=== PATIENT | male | born 1965 | race Caucasian/White ===

== ENCOUNTER 2019-04-16 03:26 | Inpatient (IN) | payer MEDICAID ==
[~2019-04-16] VITALS: Ht 182.9 cm; Wt 106.1 kg
[2019-04-16] MEDS ORDERED: VANCOMYCIN IV 200 ML ONE ×2 (03:51→05:40)
[2019-04-16] MEDS ORDERED: VANCOMYCIN IV 1,000 MG in IV DEXTROSE 5% 250 ML IV ONE (04:00)
[2019-04-16] MEDS ORDERED: SULFAMETH/TRIMETH 800/160 MG TABLET PO ONE (04:15)
[2019-04-16 05:04] LABS: BASOPHILS % (AUTO) 0.4 % (0.0-2.0); EOSINOPHILS # (AUTO) 0.2 K/uL (0.0-0.7); EOSINOPHILS % (AUTO) 2.5 % (0.0-7.0); HEMATOCRIT 41.2 % (36.7-47.1); LYMPHOCYTES # (AUTO) 2.3 K/uL (20.0-40.0); LYMPHOCYTES % (AUTO) 27.1 % (20.5-51.5); MEAN CORPUSCULAR HEMOGLOBIN 28.2 uug (23.8-33.4); MEAN CORPUSCULAR HGB CONC 34 g/dL (32.5-36.3); MEAN CORPUSCULAR VOLUME 83.1 fL (73.0-96.2); MONOCYTES # (AUTO) 0.7 K/uL (2.0-10.0); MONOCYTES % (AUTO) 7.8 % (0.0-11.0); NEUTROPHILS # (AUTO) 5.3 K/uL (1.8-8.9); NEUTROPHILS % (AUTO) 62.2 % (38.5-71.5); PLATELET COUNT (AUTO) 268 K/uL (152-348); RED BLOOD CELL COUNT(AUTO) 4.95 MIL/uL (4.06-5.63); WHITE BLOOD COUNT (AUTO) 8.6 K/uL (3.6-10.2)
[2019-04-16 05:19] LABS: BILIRUBIN,DIRECT 0.1 mg/dL (0.0-0.2); BILIRUBIN,TOTAL 0.3 mg/dL (0.2-1.0); CREATININE 0.7 mg/dL (0.6-1.3); TOTAL PROTEIN, SERUM 5.4 g/dL (6.4-8.2)
[2019-04-16 05:20] LABS: POTASSIUM 2.8 mmol/L (3.5-5.1)
[2019-04-16] MEDS ORDERED: MORPHINE SULFATE 4 MG/1 ML DISP.SYRIN ONE (05:28)
[2019-04-16] MEDS ORDERED: POTASSIUM CHLORIDE 20 MEQ TAB.PRT.SR PO ONE (05:30)
[2019-04-16] MEDS ORDERED: MORPHINE SULFATE 4 MG/1 ML DISP.SYRIN IV ONE (05:30)
[2019-04-16] MEDS ORDERED: ONDANSETRON 4 MG/2 ML VIAL IV ONE (05:30)
[2019-04-16] MEDS ORDERED: ONDANSETRON 4 MG/2 ML VIAL ONE (05:39)
[2019-04-16] MEDS ORDERED: POTASSIUM CHLORIDE 20 MEQ TAB.PRT.SR ONE (05:39)
[2019-04-16] MEDS ORDERED: VANCOMYCIN IV 500 MG in IV DEXTROSE 5% 100 ML IV ONE (05:45)
[2019-04-16] MEDS ORDERED: MAGNESIUM HYDROXIDE 30 ML LIQUID UDC PO PRN (06:45)
[2019-04-16] MEDS ORDERED: POTASSIUM CHLORIDE 20 MEQ in IV 1/2NS 1000 ML 1,000 ML IV PRN (06:45)
[2019-04-16] MEDS ORDERED: ACETAMINOPHEN 325 MG TABLET PO PRN (06:45)
[2019-04-16] MEDS ORDERED: ONDANSETRON 4 MG/2 ML VIAL IV PRN (06:45)
[2019-04-16 06:46] VITALS: BP 138/63
[2019-04-16] MEDS: PANTOPRAZOLE SODIUM 40 MG TABLET.DR PO SCH (09:18)
[2019-04-16] MEDS: ENOXAPARIN SODIUM 40 MG/0.4 ML DISP.SYRIN SQ SCH (09:19)
[2019-04-16 11:36] VITALS: BP 131/69
[2019-04-16] MEDS: VANCOMYCIN IV 1,500 MG in IV DEXTROSE 5% 500 ML IV SCH ×2 (13:30→21:47)
[2019-04-16] MEDS: MAGNESIUM SULFATE/D5W 100 ML IV SCH ×4 (13:30→18:04)
[2019-04-16] MEDS: HYDROCODONE/APAP 5-325MG TABLET PO PRN ×2 (13:48→20:35)
[2019-04-16 15:49] VITALS: BP 106/46
[2019-04-16] MEDS: PIPERACILLIN SODIUM/TAZOBACTAM 3.375 G in IV DEXTROSE 5% 50 ML IV SCH ×2 (16:28→21:47)
[2019-04-16 20:00] VITALS: BP 113/61
[2019-04-16 20:24] LABS: CREATININE 1.2 mg/dL (0.6-1.3); MAGNESIUM 2.5 mg/dL (1.8-2.4)
[2019-04-16] MEDS: DOCUSATE SODIUM 100 MG CAPSULE PO SCH (20:35)
[2019-04-16] MEDS ORDERED: DOCUSATE SODIUM 250 MG CAPSULE PO SCH (21:00)
[2019-04-16] MEDS: TEMAZEPAM 15 MG CAPSULE PO PRN (22:12)
[2019-04-17 04:56] VITALS: BP 120/59
[2019-04-17] MEDS: PIPERACILLIN SODIUM/TAZOBACTAM 3.375 G in IV DEXTROSE 5% 50 ML IV SCH ×3 (05:02→21:41)
[2019-04-17] MEDS: VANCOMYCIN IV 1,500 MG in IV DEXTROSE 5% 500 ML IV SCH ×3 (05:58→23:02)
[2019-04-17] MEDS: PANTOPRAZOLE SODIUM 40 MG TABLET.DR PO SCH (06:18)
[2019-04-17 07:06] LABS: CREATININE 1.2 mg/dL (0.6-1.3); MAGNESIUM 2.1 mg/dL (1.8-2.4); POTASSIUM 3.7 mmol/L (3.5-5.1)
[2019-04-17 08:47] LABS: BASOPHILS % (AUTO) 0.7 % (0.0-2.0); EOSINOPHILS # (AUTO) 0.3 K/uL (0.0-0.7); EOSINOPHILS % (AUTO) 5.1 % (0.0-7.0); HEMOGLOBIN 12.9 g/dL (12.5-16.3); LYMPHOCYTES # (AUTO) 1.8 K/uL (20.0-40.0); LYMPHOCYTES % (AUTO) 29.6 % (20.5-51.5); MEAN CORPUSCULAR HEMOGLOBIN 28.2 uug (23.8-33.4); MEAN CORPUSCULAR HGB CONC 34 g/dL (32.5-36.3); MONOCYTES # (AUTO) 0.5 K/uL (2.0-10.0); MONOCYTES % (AUTO) 7.9 % (0.0-11.0); NEUTROPHILS # (AUTO) 3.5 K/uL (1.8-8.9); NEUTROPHILS % (AUTO) 56.7 % (38.5-71.5); PLATELET COUNT (AUTO) 235 K/uL (152-348); RED BLOOD CELL COUNT(AUTO) 4.57 MIL/uL (4.06-5.63); WHITE BLOOD COUNT (AUTO) 6.2 K/uL (3.6-10.2)
[2019-04-17] MEDS: ENOXAPARIN SODIUM 40 MG/0.4 ML DISP.SYRIN SQ SCH (08:52)
[2019-04-17 11:33] VITALS: BP 135/57
[2019-04-17] MEDS: HYDROCODONE/APAP 5-325MG TABLET PO PRN ×2 (11:48→20:21)
[2019-04-17 16:00] VITALS: BP 131/58
[2019-04-17 20:17] VITALS: BP 148/68
[2019-04-17] MEDS: CULTURELLE CAPSULE PO SCH (20:21)
[2019-04-17] MEDS: DOCUSATE SODIUM 100 MG CAPSULE PO SCH (20:21)
[2019-04-17] MEDS: TEMAZEPAM 15 MG CAPSULE PO PRN (21:41)
[2019-04-18 04:58] VITALS: BP 133/69
[2019-04-18] MEDS: HYDROCODONE/APAP 5-325MG TABLET PO PRN ×3 (05:14→20:37)
[2019-04-18] MEDS: PIPERACILLIN SODIUM/TAZOBACTAM 3.375 G in IV DEXTROSE 5% 50 ML IV SCH ×3 (06:11→21:06)
[2019-04-18 06:17] LABS: BASOPHILS # (AUTO) 0.1 K/uL (0.0-8.0); BASOPHILS % (AUTO) 1.1 % (0.0-2.0); EOSINOPHILS # (AUTO) 0.4 K/uL (0.0-0.7); EOSINOPHILS % (AUTO) 6.5 % (0.0-7.0); HEMATOCRIT 38.8 % (36.7-47.1); HEMOGLOBIN 13.6 g/dL (12.5-16.3); LYMPHOCYTES # (AUTO) 2.1 K/uL (20.0-40.0); LYMPHOCYTES % (AUTO) 31.1 % (20.5-51.5); MEAN CORPUSCULAR HEMOGLOBIN 29.3 uug (23.8-33.4); MEAN CORPUSCULAR HGB CONC 35 g/dL (32.5-36.3); MEAN CORPUSCULAR VOLUME 83.7 fL (73.0-96.2); MONOCYTES # (AUTO) 0.5 K/uL (2.0-10.0); MONOCYTES % (AUTO) 6.8 % (0.0-11.0); NEUTROPHILS # (AUTO) 3.6 K/uL (1.8-8.9); NEUTROPHILS % (AUTO) 54.5 % (38.5-71.5); PLATELET COUNT (AUTO) 234 K/uL (152-348); RED BLOOD CELL COUNT(AUTO) 4.63 MIL/uL (4.06-5.63); WHITE BLOOD COUNT (AUTO) 6.7 K/uL (3.6-10.2)
[2019-04-18] MEDS: PANTOPRAZOLE SODIUM 40 MG TABLET.DR PO SCH (07:12)
[2019-04-18] MEDS: VANCOMYCIN IV 1,500 MG in IV DEXTROSE 5% 500 ML IV SCH ×2 (07:12→23:15)
[2019-04-18 07:21] LABS: CREATININE 1.1 mg/dL (0.6-1.3); POTASSIUM 4.5 mmol/L (3.5-5.1)
[2019-04-18] MEDS: ENOXAPARIN SODIUM 40 MG/0.4 ML DISP.SYRIN SQ SCH (08:42)
[2019-04-18] MEDS: CULTURELLE CAPSULE PO SCH ×2 (08:43→20:34)
[2019-04-18 11:53] VITALS: BP 128/68
[2019-04-18 15:34] VITALS: BP 145/76
[2019-04-18 20:19] VITALS: BP 148/66
[2019-04-18] MEDS: DOCUSATE SODIUM 100 MG CAPSULE PO SCH (20:34)
[2019-04-18] MEDS: TEMAZEPAM 15 MG CAPSULE PO PRN (23:32)
[2019-04-19] MEDS: HYDROCODONE/APAP 5-325MG TABLET PO PRN ×3 (01:10→21:17)
[2019-04-19 04:58] VITALS: BP 145/68
[2019-04-19] MEDS: PIPERACILLIN SODIUM/TAZOBACTAM 3.375 G in IV DEXTROSE 5% 50 ML IV SCH ×3 (05:38→22:52)
[2019-04-19] MEDS: PANTOPRAZOLE SODIUM 40 MG TABLET.DR PO SCH (06:13)
[2019-04-19] MEDS: CULTURELLE CAPSULE PO SCH ×2 (09:23→21:02)
[2019-04-19] MEDS: ENOXAPARIN SODIUM 40 MG/0.4 ML DISP.SYRIN SQ SCH (09:27)
[2019-04-19] MEDS: VANCOMYCIN IV 1,500 MG in IV DEXTROSE 5% 500 ML IV SCH ×2 (11:08→21:02)
[2019-04-19 11:30] VITALS: BP 155/61
[2019-04-19 14:48] VITALS: BP 106/56
[2019-04-19 20:43] VITALS: BP 127/52
[2019-04-19] MEDS: DOCUSATE SODIUM 100 MG CAPSULE PO SCH (21:02)
[2019-04-19] MEDS: TEMAZEPAM 15 MG CAPSULE PO PRN (21:16)
[2019-04-20 05:11] VITALS: BP 138/58
[2019-04-20] MEDS: PIPERACILLIN SODIUM/TAZOBACTAM 3.375 G in IV DEXTROSE 5% 50 ML IV SCH ×2 (05:23→15:15)
[2019-04-20] MEDS: PANTOPRAZOLE SODIUM 40 MG TABLET.DR PO SCH (06:16)
[2019-04-20] MEDS: VANCOMYCIN IV 1,500 MG in IV DEXTROSE 5% 500 ML IV SCH (08:00)
[2019-04-20] MEDS ORDERED: THERAHONEY GEL 1.5 OZ TUBE TOP SCH (09:00)
[2019-04-20] MEDS: CULTURELLE CAPSULE PO SCH (10:09)
[2019-04-20] MEDS: HYDROCODONE/APAP 5-325MG TABLET PO PRN (10:09)
[2019-04-20] MEDS: ENOXAPARIN SODIUM 40 MG/0.4 ML DISP.SYRIN SQ SCH (10:13)
[2019-04-20 11:34] VITALS: BP 118/60
[2019-04-20] MEDS ORDERED: VANCOMYCIN IV 1,500 MG in IV DEXTROSE 5% 500 ML IV SCH (13:00)
[2019-04-20 16:00] VITALS: BP 118/52
== END 2019-04-20 18:45 | disposition home or self-care (01) | DRG 383 ==
LOC: ER 03:30 → MEDSURG3 06:12
PROVIDERS: ADMIT Internal Medicine; ATTEND Nurse Practitioner Acute Care
DX: L03.116 Cellulitis of left lower limb (principal); E44.0 Moderate protein-calorie malnutrition; E83.42 Hypomagnesemia; L97.828 Non-pressure chronic ulcer of other part of left lower leg with other specified severity; I87.2 Venous insufficiency (chronic) (peripheral); B19.20 Unspecified viral hepatitis C without hepatic coma; E87.6 Hypokalemia; Z59.0 Homelessness; F17.210 Nicotine dependence, cigarettes, uncomplicated; B95.61 Methicillin susceptible Staphylococcus aureus infection as the cause of diseases classified elsewhere; B95.0 Streptococcus, group A, as the cause of diseases classified elsewhere; Z86.19 Personal history of other infectious and parasitic diseases; S82.832S Other fracture of upper and lower end of left fibula, sequela; V29.9XXS Motorcycle rider (driver) (passenger) injured in unspecified traffic accident, sequela; F15.90 Other stimulant use, unspecified, uncomplicated
CPT/HCPCS: 36415; 36569; 70030-TC; 73590; 83605; 83735; 85025; 85610; 85730; 87040; 87070; 87077; 93005; 93307; A4663; G0378; J1650; J2270; J2405; J2543; J3370; J3475; J3480; J3490; J7040; J7050; J7060

== ENCOUNTER 2019-07-18 06:01 | Inpatient (IN) | payer MEDICAID ==
[~2019-07-18] VITALS: Ht 172.7 cm; Wt 104.3 kg
--- NOTE | 2019-07-18 06:29 | NUR ---
Dr. Lyles at bedside for MSE.
--- NOTE | 2019-07-18 06:47 | NUR ---
Report given to Musa Taylor RN dayshift.
[2019-07-18] MEDS ORDERED: ACETAMINOPHEN ES 500 MG TABLET PO ONE (07:15)
[2019-07-18] MEDS ORDERED: IV NORMAL SALINE 1000 ML BAG IV ONE (07:15)
[2019-07-18] MEDS ORDERED: VANCOMYCIN IV 2,000 MG in IV DEXTROSE 5% 500 ML IV SCH (07:15)
[2019-07-18] MEDS ORDERED: PIPERACILLIN SODIUM/TAZOBACTAM 3.375 G in IV DEXTROSE 5% 50 ML IV ONE (07:15)
[2019-07-18] MEDS ORDERED: KETOROLAC TROMETHAMINE 30 MG INJ IVP ONE (07:15)
[2019-07-18] MEDS ORDERED: PIPERACILLIN/TAZOBACTAM/D5W 50 ML IV ONE (07:19)
[2019-07-18] MEDS ORDERED: KETOROLAC TROMETHAMINE 30 MG INJ ONE (07:19)
[2019-07-18] MEDS ORDERED: VANCOMYCIN IV 200 ML ONE (07:20)
[2019-07-18 07:33] LABS: BASOPHILS % (AUTO) 0.3 % (0.0-2.0); EOSINOPHILS % (AUTO) 0.1 % (0.0-7.0); HEMOGLOBIN 12.2 g/dL (12.5-16.3); LYMPHOCYTES # (AUTO) 0.6 K/uL (20.0-40.0); LYMPHOCYTES % (AUTO) 3.8 % (20.5-51.5); MEAN CORPUSCULAR HEMOGLOBIN 27.5 uug (23.8-33.4); MEAN CORPUSCULAR HGB CONC 34 g/dL (32.5-36.3); MEAN CORPUSCULAR VOLUME 81.3 fL (73.0-96.2); MONOCYTES # (AUTO) 0.6 K/uL (2.0-10.0); MONOCYTES % (AUTO) 3.6 % (0.0-11.0); NEUTROPHILS # (AUTO) 14.5 K/uL (1.8-8.9); NEUTROPHILS % (AUTO) 92.2 % (38.5-71.5); PLATELET COUNT (AUTO) 208 K/uL (152-348); RED BLOOD CELL COUNT(AUTO) 4.42 MIL/uL (4.06-5.63); WHITE BLOOD COUNT (AUTO) 15.7 K/uL (3.6-10.2)
[2019-07-18 07:49] LABS: ETHANOL < 3 MG/DL (0-0)
[2019-07-18 07:54] LABS: BILIRUBIN,DIRECT 0.1 mg/dL (0.0-0.2); BILIRUBIN,TOTAL 0.5 mg/dL (0.2-1.0); MAGNESIUM 1.4 mg/dL (1.8-2.4); TOTAL PROTEIN, SERUM 7.5 g/dL (6.4-8.2)
[2019-07-18 08:03] LABS: CREATININE 1.1 mg/dL (0.6-1.3); POTASSIUM 3.8 mmol/L (3.5-5.1)
[2019-07-18] MEDS ORDERED: ACETAMINOPHEN ES 500 MG TABLET ONE (08:17)
[2019-07-18] MEDS ORDERED: MAGNESIUM SULFATE/D5W 100 ML ONE ×2 (08:17→09:45)
[2019-07-18] MEDS: MAGNESIUM SULFATE/D5W 100 ML IV SCH ×2 (08:33→09:30)
--- NOTE | 2019-07-18 08:56 | NUR ---
EPIC paged awaiting call back.
--- NOTE | 2019-07-18 08:57 | NUR ---
Mayra RN (inpatient) stated that there are no available staff to receive patients for admission. Mail Courier, [employer], contacted -- stated that they should have another nurse coming in within an hour or so.
[2019-07-18] MEDS ORDERED: LEVOFLOXACIN 750 MG/D5W 150 ML PIGGYBACK IV ONE (09:00)
[2019-07-18] MEDS ORDERED: LEVOFLOXACIN 750MG/D5W 150 ML IV ONE (09:45)
[2019-07-18] MEDS ORDERED: VANCOMYCIN 1000 MG VIAL ONE (09:45)
--- NOTE | 2019-07-18 10:20 | NUR ---
According to [facility], it is not MARSHA who is covering us it is Dr. Mederos. Awaiting call back.
--- NOTE | 2019-07-18 10:30 | NUR ---
Magnesium IV last bag infused and finished at 1030
[2019-07-18 11:02] LABS: *BILIRUBIN,URIN NEGATIVE (NEGATIVE); *CLARITY,URINE CLEAR (CLEAR); *COLOR,URINE YELLOW (YELLOW); *KETONES,URINE NEGATIVE (NEGATIVE); LEUKOCYTE ESTERASE ,URINE NEGATIVE (NEGATIVE); NITRITE, URINE NEGATIVE (NEGATIVE); PH,URINE 7.5 (5.0-8.0); UGLUCOSE NEGATIVE (NEGATIVE)
[2019-07-18 11:14] LABS: *BLOOD, URINE TRACE INTACT (NEGATIVE)
[2019-07-18 11:18] LABS: BACTERIA,URINE NONE SEEN /HPF (NONE SEEN); RBC,URINE 0-3 /HPF (0-3); SQUAMOUS EPITHELIAL CELL,UR NONE SEEN /HPF (NONE SEEN); WBC,URINE 0-3 /HPF (0-3)
[2019-07-18 11:23] LABS: *AMPHETAMINE, URINE POSITIVE (NEGATIVE); *BARBITURATE, URINE NEGATIVE (NEGATIVE); *CANNABINOID, URINE POSITIVE (NEGATIVE); *COCCAINE, URINE NEGATIVE (NEGATIVE); *OPIATE, URINE POSITIVE (NEGATIVE); *PHENCYCLIDINE SCREEN,URINE NEGATIVE (NEGATIVE)
--- NOTE | 2019-07-18 11:24 | NUR ---
Report given to NETO Donohue
--- NOTE | 2019-07-18 12:00 | NUR ---
Patient transported to inpatient floor in stable condition.
[2019-07-18 12:30] VITALS: BP 145/68
[2019-07-18] MEDS ORDERED: MAGNESIUM HYDROXIDE 30 ML LIQUID UDC PO PRN (13:00)
[2019-07-18] MEDS ORDERED: ACETAMINOPHEN 325 MG TABLET PO PRN (13:00)
[2019-07-18] MEDS ORDERED: Z GUARD REMEDY PASTE 57 GM TUBE TOP PRN (13:00)
[2019-07-18] MEDS ORDERED: ONDANSETRON 4 MG/2 ML VIAL IV PRN (13:00)
[2019-07-18] MEDS: HYDROCODONE/APAP 5-325MG TABLET PO PRN (13:28)
[2019-07-18 13:30] VITALS: BP 151/82
[2019-07-18] MEDS: NEOMY/BACITRAC/POLYMI OINT 28.35 GM TUBE TOP SCH (14:15)
[2019-07-18 14:50] LABS: ALANINE AMINOTRANSFERASE 25 U/L (16-63); ALKALINE PHOSPHATASE 68 U/L (50-136); ASPARTATE AMINOTRANSFERASE 23 U/L (15-37); BILIRUBIN,DIRECT < 0.1 mg/dL (0.0-0.2); BILIRUBIN,TOTAL 0.5 mg/dL (0.2-1.0); TOTAL PROTEIN, SERUM 6.7 g/dL (6.4-8.2)
[2019-07-18 15:32] VITALS: BP 145/46
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
[2019-07-18 20:19] VITALS: BP 148/57
[2019-07-18] MEDS: CLINDAMYCIN PHOSPHATE IV 900 MG in IV DEXTROSE 5% 100 ML IV SCH (22:03)
[2019-07-19] MEDS: ZOLPIDEM 5 MG TABLET PO PRN (03:25)
[2019-07-19 04:20] VITALS: BP 106/58
[2019-07-19] MEDS: CLINDAMYCIN PHOSPHATE IV 900 MG in IV DEXTROSE 5% 100 ML IV SCH ×3 (04:59→22:15)
[2019-07-19 06:21] LABS: BASOPHILS % (AUTO) 0.3 % (0.0-2.0); EOSINOPHILS % (AUTO) 0.5 % (0.0-7.0); HEMATOCRIT 35.6 % (36.7-47.1); HEMOGLOBIN 12.1 g/dL (12.5-16.3); LYMPHOCYTES # (AUTO) 1.3 K/uL (20.0-40.0); LYMPHOCYTES % (AUTO) 13.6 % (20.5-51.5); MEAN CORPUSCULAR HEMOGLOBIN 27.7 uug (23.8-33.4); MEAN CORPUSCULAR HGB CONC 34 g/dL (32.5-36.3); MEAN CORPUSCULAR VOLUME 81.7 fL (73.0-96.2); MONOCYTES # (AUTO) 0.6 K/uL (2.0-10.0); MONOCYTES % (AUTO) 6.6 % (0.0-11.0); NEUTROPHILS # (AUTO) 7.7 K/uL (1.8-8.9); PLATELET COUNT (AUTO) 184 K/uL (152-348); RED BLOOD CELL COUNT(AUTO) 4.36 MIL/uL (4.06-5.63); WHITE BLOOD COUNT (AUTO) 9.8 K/uL (3.6-10.2)
[2019-07-19 06:40] LABS: MAGNESIUM 1.6 mg/dL (1.8-2.4); PHOSPHOROUS 2.1 mg/dL (2.5-4.9); POTASSIUM 3.2 mmol/L (3.5-5.1)
[2019-07-19] MEDS ORDERED: POTASSIUM CHLORIDE 20 MEQ TAB.PRT.SR PO ONE (09:30)
[2019-07-19] MEDS: NEOMY/BACITRAC/POLYMI OINT 28.35 GM TUBE TOP SCH (09:55)
[2019-07-19] MEDS: SILVER SULFADIAZINE 1% CREAM 50 GM TP SCH (09:55)
[2019-07-19] MEDS: MAGNESIUM SULFATE/D5W 100 ML IV SCH ×2 (10:20→11:18)
[2019-07-19] MEDS: HYDROCODONE/APAP 5-325MG TABLET PO PRN ×2 (10:26→22:21)
[2019-07-19 11:42] VITALS: BP 121/46
[2019-07-19] MEDS: IV NS 1000 ML 1,000 ML IV PRN (15:28)
[2019-07-19] MEDS ORDERED: NEUTRA PHOS PACKET PO ONE (16:00)
[2019-07-19 16:20] VITALS: BP 131/63
--- NOTE | 2019-07-19 17:26 | NUR ---
Patient resting in bed, alert and oriented. No distress noted. Pain managed with PRN [place] 5, patient verbalized comfort after administration. Potassium 3.2 replaced today PO, Mg 1.6 replaced today IV. Neutraphos PO for phos of 2.1. Continues on IV fluids and on antibiotics. Wound care done today per orders: bilateral knee, right lower back and left lower leg.
--- NOTE | 2019-07-19 20:00 | NUR ---
AWAKE ALERT, IN NO ACUTE DISTRESS.MEDICATED FOR LEFT LEG PAIN NORCO GIVEN,SANDWICH GIVEN. MADE COMFORTABLE.
[2019-07-19 20:45] VITALS: BP 135/63
[2019-07-20] MEDS: IV NS 1000 ML 1,000 ML IV PRN ×3 (01:39→23:37)
[2019-07-20 04:00] VITALS: BP 155/65
[2019-07-20] MEDS: HYDROCODONE/APAP 5-325MG TABLET PO PRN ×4 (05:15→23:32)
--- NOTE | 2019-07-20 05:31 | NUR ---
slept at intervals,in noacute distress ,
[2019-07-20 06:32] LABS: BASOPHILS % (AUTO) 0.6 % (0.0-2.0); EOSINOPHILS # (AUTO) 0.3 K/uL (0.0-0.7); HEMATOCRIT 34.2 % (36.7-47.1); HEMOGLOBIN 11.7 g/dL (12.5-16.3); LYMPHOCYTES # (AUTO) 1.3 K/uL (20.0-40.0); LYMPHOCYTES % (AUTO) 19.1 % (20.5-51.5); MEAN CORPUSCULAR HEMOGLOBIN 27.8 uug (23.8-33.4); MEAN CORPUSCULAR HGB CONC 34 g/dL (32.5-36.3); MEAN CORPUSCULAR VOLUME 81.4 fL (73.0-96.2); MONOCYTES # (AUTO) 0.6 K/uL (2.0-10.0); MONOCYTES % (AUTO) 8.4 % (0.0-11.0); NEUTROPHILS # (AUTO) 4.7 K/uL (1.8-8.9); NEUTROPHILS % (AUTO) 67.9 % (38.5-71.5); PLATELET COUNT (AUTO) 220 K/uL (152-348)
[2019-07-20] MEDS: CLINDAMYCIN PHOSPHATE IV 900 MG in IV DEXTROSE 5% 100 ML IV SCH (06:34)
[2019-07-20 06:51] LABS: MAGNESIUM 1.9 mg/dL (1.8-2.4); PHOSPHOROUS 2.2 mg/dL (2.5-4.9)
--- NOTE | 2019-07-20 07:25 | NUR ---
RECEIVED PATIENT IN BED ASLEEP , NO S/S OF ACUTE DISTRESS NOTED , IV INTACT AND PATENT , SAFETY AND COMFORT PROVIDED AT ALL TIMES. CALL LIGHT WITHIN REACH. WILL CONTINUE TO MONITOR.
[2019-07-20] MEDS: NEOMY/BACITRAC/POLYMI OINT 28.35 GM TUBE TOP SCH (08:26)
[2019-07-20] MEDS: SILVER SULFADIAZINE 1% CREAM 50 GM TP SCH (08:26)
[2019-07-20 11:53] VITALS: BP 107/41
--- NOTE | 2019-07-20 12:10 | NUR ---
received report from Bowen from [facility] that patient has MRSA in the wound.
--- NOTE | 2019-07-20 12:30 | NUR ---
called Dr. Maharaj to report patient MRSA on the wound, waiting for reply.
--- NOTE | 2019-07-20 14:43 | NUR ---
PHARMACY CLINICAL NOTES: (VANCOMYCIN DOSING) S: 54 YO male with dx of recurrent LLE cellulitis with purulent discharge. He was on clindamycin but WC + for MRSA sens. to Vanco and Bactrim and resistant to clindamycin. Informed MD and he wants to change to Vancomycin O: BUN/SCR 10/1.0, WBC 7.0, TEMP 98.2, CRCL 79.8, DOSING WT 230 LBS A/P: Will dose Vancomycin as 1250 mg IVPB q12hr. First dose @ 1500. The current regimen will yield estimated peak of 40 and trough of 18. Plan to order trough prior to 4th dose of vancomycin(not ordered yet). Will continue to monitor renal fxn and levels and adjust dose as necessary.
[2019-07-20] MEDS: VANCOMYCIN IV 1,250 MG in IV DEXTROSE 5% 250 ML IV SCH (14:49)
[2019-07-20 15:53] VITALS: BP 120/52
[2019-07-20] MEDS ORDERED: NEUTRA PHOS PACKET PO ONE (16:45)
--- NOTE | 2019-07-20 18:33 | NUR ---
PATIENT IN BED RESTING, TREATMENT DONE, NO SOB NOTED AT THIS TIME. KEPT CLEAN AND DRY AT ALL TIMES. C/O PAIN AND PRN PAIN MEDICATIONS GIVEN ORDERED. ALL NEEDS ATTENDED. CALL LIGHT WITHIN REACH AND WILL CONTINUE TO MONITOR.
[2019-07-20 20:00] VITALS: BP 126/70
--- NOTE | 2019-07-20 20:00 | NUR ---
Patient received into care, laying in bed, resting comfortably. Patient is alert/oriented x3 and has no complaints of pain or discomfort at this time. Safety and fall precaution measures are in place. Call light and personal items are within reach. Will continue to monitor and assess.
[2019-07-21] MEDS: VANCOMYCIN IV 1,250 MG in IV DEXTROSE 5% 250 ML IV SCH ×2 (02:15→14:19)
[2019-07-21 05:08] VITALS: BP 129/50
[2019-07-21] MEDS: HYDROCODONE/APAP 5-325MG TABLET PO PRN ×3 (05:32→20:06)
--- NOTE | 2019-07-21 06:00 | NUR ---
Patient slept intermittently throughout night with complaints of pain immediately addressed with prescribed analgesics, with no adverse side effects verbalized by patient or noted/observed by nurse. All prescribed IV antibiotics were provided as ordered and tolerated well, with no adverse side effects verbalized by patient or noted/observed by nurse. All safety and fall precaution measures remain in place. Personal items and call light remain within reach at all times.
[2019-07-21 06:41] LABS: BASOPHILS % (AUTO) 0.5 % (0.0-2.0); EOSINOPHILS # (AUTO) 0.3 K/uL (0.0-0.7); EOSINOPHILS % (AUTO) 5.3 % (0.0-7.0); HEMATOCRIT 36.3 % (36.7-47.1); HEMOGLOBIN 12.2 g/dL (12.5-16.3); LYMPHOCYTES # (AUTO) 1.4 K/uL (20.0-40.0); LYMPHOCYTES % (AUTO) 22.7 % (20.5-51.5); MEAN CORPUSCULAR HEMOGLOBIN 27.3 uug (23.8-33.4); MEAN CORPUSCULAR HGB CONC 34 g/dL (32.5-36.3); MEAN CORPUSCULAR VOLUME 81.1 fL (73.0-96.2); MONOCYTES # (AUTO) 0.7 K/uL (2.0-10.0); MONOCYTES % (AUTO) 10.8 % (0.0-11.0); NEUTROPHILS # (AUTO) 3.8 K/uL (1.8-8.9); NEUTROPHILS % (AUTO) 60.7 % (38.5-71.5); PLATELET COUNT (AUTO) 274 K/uL (152-348); RED BLOOD CELL COUNT(AUTO) 4.48 MIL/uL (4.06-5.63); WHITE BLOOD COUNT (AUTO) 6.3 K/uL (3.6-10.2)
[2019-07-21 06:44] LABS: CREATININE 0.9 mg/dL (0.6-1.3); PHOSPHOROUS 3.1 mg/dL (2.5-4.9)
--- NOTE | 2019-07-21 07:15 | NUR ---
Received patient in Bed, awake and verbally responsive. No signs of distress noted. No SOB. No complain of Pain discomfort at this time. IVF infusing well. Kept the call light within easy reach. Patient on Contact Isolation for MRSA Wound of Left knee. Proper PPE strictly Observed. Will continue to monitor.
--- NOTE | 2019-07-21 09:15 | NUR ---
PHARMACY CLINICAL NOTES: (VANCOMYCIN DOSING) S: Continue Vancomycin for 54 YO male with dx of recurrent LLE cellulitis with purulent discharge. He was on clindamycin but WC + for MRSA sens. to Vanco and Bactrim and resistant to clindamycin. Informed MD and he wants to change to Vancomycin O: BUN/SCR 9/0.9, WBC 6.3, TEMP 98, A/P: Will continue Vancomycin as 1250 mg IVPB q12hr, third dose today @ 1500. The current regimen will yield estimated peak of 40 and trough of 18. Plan to order trough prior to 4th dose of vancomycin(ordered for tomorrow at 0230). Will continue to monitor renal fxn and levels and adjust dose as necessary.
[2019-07-21] MEDS: NEOMY/BACITRAC/POLYMI OINT 28.35 GM TUBE TOP SCH (09:53)
[2019-07-21] MEDS: SILVER SULFADIAZINE 1% CREAM 50 GM TP SCH (09:53)
[2019-07-21 11:50] VITALS: BP 150/64
[2019-07-21] MEDS: IV NS 1000 ML 1,000 ML IV PRN (13:56)
[2019-07-21 15:34] VITALS: BP 148/63
--- NOTE | 2019-07-21 18:34 | NUR ---
Patient in Bed, sleeps intermittently. No signs of distress noted. No SOB. Pain medication given as ordered. Wound treatment done. Remains on contact isolation for MRSA Left Knee wound. All due medications given as ordered. Kept clean and comfortable. Will endorse to Oncoming Nurse.
--- NOTE | 2019-07-21 20:00 | NUR ---
awake alert x4, infection doctor came to see patient.complained of lower extremities pain norco 1 tab given.
[2019-07-21 21:36] VITALS: BP 146/75
[2019-07-22] MEDS: HYDROCODONE/APAP 5-325MG TABLET PO PRN ×2 (01:59→13:26)
[2019-07-22] MEDS: IV NS 1000 ML 1,000 ML IV PRN ×2 (02:04→21:53)
[2019-07-22] MEDS: VANCOMYCIN IV 1,250 MG in IV DEXTROSE 5% 250 ML IV SCH (03:42)
--- NOTE | 2019-07-22 05:50 | NUR ---
iv infiltrated,er nurse unable to insert iv.refused to be started.
[2019-07-22 05:55] VITALS: BP 146/44
[2019-07-22 06:25] LABS: BASOPHILS % (AUTO) 0.6 % (0.0-2.0); EOSINOPHILS # (AUTO) 0.3 K/uL (0.0-0.7); EOSINOPHILS % (AUTO) 4.5 % (0.0-7.0); HEMOGLOBIN 13.6 g/dL (12.5-16.3); LYMPHOCYTES # (AUTO) 1.8 K/uL (20.0-40.0); LYMPHOCYTES % (AUTO) 32.1 % (20.5-51.5); MEAN CORPUSCULAR HEMOGLOBIN 27.3 uug (23.8-33.4); MEAN CORPUSCULAR HGB CONC 34 g/dL (32.5-36.3); MEAN CORPUSCULAR VOLUME 80.4 fL (73.0-96.2); MONOCYTES # (AUTO) 0.8 K/uL (2.0-10.0); MONOCYTES % (AUTO) 14.8 % (0.0-11.0); NEUTROPHILS # (AUTO) 2.7 K/uL (1.8-8.9); PLATELET COUNT (AUTO) 309 K/uL (152-348); RED BLOOD CELL COUNT(AUTO) 4.97 MIL/uL (4.06-5.63); WHITE BLOOD COUNT (AUTO) 5.6 K/uL (3.6-10.2)
[2019-07-22 06:28] LABS: POTASSIUM 4.2 mmol/L (3.5-5.1)
--- NOTE | 2019-07-22 07:00 | NUR ---
Received patient in Bed, awake and verbally responsive. No signs of distress noted. No SOB. No complain of Pain or discomfort. Waiting for Midline Insertion, Will continue to monitor.
[2019-07-22] MEDS: NEOMY/BACITRAC/POLYMI OINT 28.35 GM TUBE TOP SCH (09:19)
[2019-07-22] MEDS: SILVER SULFADIAZINE 1% CREAM 50 GM TP SCH (09:20)
--- NOTE | 2019-07-22 09:27 | NUR ---
PHARMACY CLINICAL NOTES: (VANCOMYCIN DOSING) S: Continue Vancomycin for 54 YO male with dx of recurrent LLE cellulitis with purulent discharge. He was on clindamycin but WC + for MRSA sens. to Vanco and Bactrim and resistant to clindamycin. Informed MD and he wants to change to Vancomycin O: BUN/SCR 11/1.0, WBC 5.6, TEMP 98.6 Vanco trough level on 07/22 at 0230: 9.5 ht 172 cm wt 104 kg A/P: Since vanco trough level is 9.5 mcg/ml, will change dose to Vancomycin 1500 mg IVPB q10hr for predicted vanco trough level of 15.7 mcg/ml at [facility]. Patient has no IV access (waiting for PICC line placement today- RN will call when line is placed to start 1st dose of new regimen. Plan to roder vanco trough level before 4th dose (not yet ordered) . Will continue to monitor renal fxn and levels and adjust dose as necessary. Will follow
[2019-07-22 11:26] VITALS: BP 146/74
[2019-07-22] MEDS: VANCOMYCIN IV 1,500 MG in IV DEXTROSE 5% 500 ML IV SCH ×2 (13:14→23:20)
[2019-07-22 16:00] VITALS: BP 120/45
--- NOTE | 2019-07-22 18:30 | NUR ---
Patient in Bed, awake and verbally responsive. Pain medication given as ordered. Midline was placed on MARCOS gauge 20, IVF infusing well. Patient on vancomycin IV, with standing Order to Hold if Trough 1930 is more than 20, Hold the vancomycin. Remains on Contact Isolation for MRSA wound on Left Knee. Wound treatment done. Kept clean and comfortable. Will endorse to Oncoming Nurse.
[2019-07-22 21:13] VITALS: BP 145/51
[2019-07-23] MEDS: HYDROCODONE/APAP 5-325MG TABLET PO PRN ×4 (03:10→21:42)
--- NOTE | 2019-07-23 06:27 | NUR ---
PATIENT SLEPT WELL THROUGHOUT THE NIGHT. NO CHANGE IVF INFUSING WELL.
[2019-07-23 06:34] VITALS: BP 132/74
[2019-07-23 06:44] LABS: BASOPHILS % (AUTO) 0.4 % (0.0-2.0); EOSINOPHILS # (AUTO) 0.2 K/uL (0.0-0.7); EOSINOPHILS % (AUTO) 3.1 % (0.0-7.0); HEMATOCRIT 38.2 % (36.7-47.1); HEMOGLOBIN 13.2 g/dL (12.5-16.3); LYMPHOCYTES # (AUTO) 1.7 K/uL (20.0-40.0); LYMPHOCYTES % (AUTO) 32.4 % (20.5-51.5); MEAN CORPUSCULAR HEMOGLOBIN 27.7 uug (23.8-33.4); MEAN CORPUSCULAR HGB CONC 35 g/dL (32.5-36.3); MEAN CORPUSCULAR VOLUME 80.2 fL (73.0-96.2); MONOCYTES # (AUTO) 0.6 K/uL (2.0-10.0); MONOCYTES % (AUTO) 12.3 % (0.0-11.0); NEUTROPHILS # (AUTO) 2.6 K/uL (1.8-8.9); NEUTROPHILS % (AUTO) 51.8 % (38.5-71.5); PLATELET COUNT (AUTO) 333 K/uL (152-348); RED BLOOD CELL COUNT(AUTO) 4.77 MIL/uL (4.06-5.63); WHITE BLOOD COUNT (AUTO) 5.1 K/uL (3.6-10.2)
[2019-07-23 07:14] LABS: POTASSIUM 3.9 mmol/L (3.5-5.1)
--- NOTE | 2019-07-23 08:00 | NUR ---
received pt. resting in bed alert oriented x4. Pt. denies pain/ discomfort. Pt. denies SOB/ difficulty breathing. R UA midline intact patent running prescribed fluid. All needs met. Safety measures in place. Call light within reach. Will continue to monitor pt.
--- NOTE | 2019-07-23 08:04 | NUR ---
PHARMACY CLINICAL NOTES: (VANCOMYCIN DOSING) S: Continue Vancomycin for 54 YO male with dx of recurrent LLE cellulitis with purulent discharge. He was on clindamycin but WC + for MRSA sens. to Vanco and Bactrim and resistant to clindamycin. Informed MD and he wants to change to Vancomycin O: BUN/SCR 12/1.0, WBC 5.1, TEMP 97.9 Vanco trough level on 07/22 at 0230: 9.5 ht 172 cm wt 104 kg A/P: Will continue same dose of Vancomycin 1500 mg IVPB q10hr for predicted vanco trough level of 15.7 mcg/ml at [facility]. 3rd dose today at 0900. Plan to order vanco trough level before 4th dose (ordered for audi at 1830-RN has been informed to hold 1900 dose if vanco trough level is above 20 mcg/ml) . Will review the level in am and adjust dose as necessary. Will follow
[2019-07-23] MEDS: VANCOMYCIN IV 1,500 MG in IV DEXTROSE 5% 500 ML IV SCH ×2 (08:43→21:43)
[2019-07-23] MEDS: SILVER SULFADIAZINE 1% CREAM 50 GM TP SCH (08:44)
[2019-07-23] MEDS: NEOMY/BACITRAC/POLYMI OINT 28.35 GM TUBE TOP SCH (08:44)
--- NOTE | 2019-07-23 09:44 | NUR ---
Pt. complaining of 7/10 pain provided pt. with [place]. Provided wound care to left lower leg and right lower back. Pt. refused wound care to bilateral knees. Explained risks and benefits pt. still refused as he stated it is already healed and the dressings come off easily. Safety measures in place. Call light within reach. Will continue to monitor pt.
[2019-07-23 11:10] VITALS: BP 138/68
[2019-07-23 15:15] VITALS: BP 120/59
[2019-07-23 21:26] VITALS: BP 135/52
[2019-07-24] MEDS: HYDROCODONE/APAP 5-325MG TABLET PO PRN ×2 (03:22→19:50)
[2019-07-24 04:00] VITALS: BP 120/54
[2019-07-24 05:13] VITALS: BP 120/54
[2019-07-24] MEDS: VANCOMYCIN IV 1,500 MG in IV DEXTROSE 5% 500 ML IV SCH ×2 (05:37→15:08)
[2019-07-24] MEDS: NEOMY/BACITRAC/POLYMI OINT 28.35 GM TUBE TOP SCH (09:13)
[2019-07-24] MEDS: IV NS 1000 ML 1,000 ML IV PRN (09:13)
[2019-07-24] MEDS: SILVER SULFADIAZINE 1% CREAM 50 GM TP SCH (09:13)
--- NOTE | 2019-07-24 10:16 | NUR ---
PHARMACY CLINICAL NOTES: (VANCOMYCIN DOSING) S: Continue Vancomycin for 54 YO male with dx of recurrent LLE cellulitis with purulent discharge. He was on clindamycin but WC + for MRSA sens. to Vanco and Bactrim and resistant to clindamycin. Informed MD and he wants to change to Vancomycin O: BUN/SCR 12/1.0 (07/23), WBC 5.1 (07/23), TEMP 98.6 Vanco trough level on 07/22 at 0230: 9.5 Vanco trough level 07/23 @1830: 16.8 ht 172 cm wt 104 kg A/P: As trough within therapeutic range, will continue same dose of Vancomycin 1500 mg IVPB q10hr for now. Will continue to follow and adjust or check level again if condition were to change. Otherwise will monitor
[2019-07-24] MEDS ORDERED: MUPIROCIN 2% OINT 22 GM TUBE NS SCH (11:15)
[2019-07-24 11:23] VITALS: BP 129/51
[2019-07-24 15:35] VITALS: BP 149/62
--- NOTE | 2019-07-24 19:27 | NUR ---
Provided pt. with wound care. Pt. compliant with plan of care. All needs met. Safety measures in place.
[2019-07-24] MEDS: ZOLPIDEM 5 MG TABLET PO PRN (23:02)
[2019-07-25] VITALS: BP 151/65
[2019-07-25] MEDS: VANCOMYCIN IV 1,500 MG in IV DEXTROSE 5% 500 ML IV SCH ×3 (00:48→21:09)
[2019-07-25] MEDS: IV NS 1000 ML 1,000 ML IV PRN ×2 (04:52→21:27)
[2019-07-25 06:00] VITALS: BP 107/60
--- NOTE | 2019-07-25 07:30 | NUR ---
Patient calm and comfortable upon initial assessment with no signs of distress; patient will continue to be monitored.
[2019-07-25] MEDS: NEOMY/BACITRAC/POLYMI OINT 28.35 GM TUBE TOP SCH (08:26)
[2019-07-25] MEDS: SILVER SULFADIAZINE 1% CREAM 50 GM TP SCH (08:27)
[2019-07-25] MEDS: HYDROCODONE/APAP 5-325MG TABLET PO PRN (08:31)
[2019-07-25 11:40] VITALS: BP 117/48
--- NOTE | 2019-07-25 11:45 | NUR ---
PHARMACY CLINICAL NOTES: (VANCOMYCIN DOSING) S: Continue Vancomycin for 54 YO male with dx of recurrent LLE cellulitis with purulent discharge. He was on clindamycin but WC + for MRSA sens. to Vanco and Bactrim and resistant to clindamycin. Informed MD and he wants to change to Vancomycin O: BUN/SCR 12/1.0 (07/23), WBC 5.1 (07/23), TEMP 98 Vanco trough level on 07/22 at 0230: 9.5 Vanco trough level 07/23 @1830: 16.8 ht 172 cm wt 104 kg A/P: As trough within therapeutic range, will continue same dose of Vancomycin 1500 mg IVPB q10hr for now. Will continue to follow and adjust or check level again if condition were to change. Otherwise will monitor
[2019-07-25 15:46] VITALS: BP 124/51
[2019-07-25 15:51] LABS: POTASSIUM 3.9 mmol/L (3.5-5.1)
--- NOTE | 2019-07-25 18:10 | NUR ---
Patient medication compliant through out shift; patient with no signs of distress; with stable vital signs and no signs of acute distress; Report given to oncoming nurse.
[2019-07-26] MEDS: VANCOMYCIN IV 1,500 MG in IV DEXTROSE 5% 500 ML IV SCH ×2 (06:15→18:08)
--- NOTE | 2019-07-26 06:52 | NUR ---
patient received lying in bed watching tv. no signs of acute distress and v/s stable throughout shift. safety and comfort measures provided. contact precautions for MRSA. contacted outside pharmacy for vanco administration and spoke with Diya. last vanco trough wax 07/23/19. okay to administer. wound care provided. will continue to monitor and endorse to morning nurse.
--- NOTE | 2019-07-26 07:30 | NUR ---
Patient calm and comfortable with no signs of distress and stable ; patient will continue to be monitored.
[2019-07-26] MEDS: NEOMY/BACITRAC/POLYMI OINT 28.35 GM TUBE TOP SCH (09:04)
[2019-07-26] MEDS: SILVER SULFADIAZINE 1% CREAM 50 GM TP SCH (09:05)
--- NOTE | 2019-07-26 09:15 | NUR ---
PHARMACY CLINICAL NOTES: (VANCOMYCIN DOSING) S: Continue Vancomycin for 54 YO male with dx of recurrent LLE cellulitis with purulent discharge. He was on clindamycin but WC + for MRSA sens. to Vanco and Bactrim and resistant to clindamycin. Informed MD and he wants to change to Vancomycin O: BUN/SCR 19/1.0 (07/25), WBC 5.1 (07/23), TEMP 98.5 Vanco trough level on 07/22 at 0230: 9.5 Vanco trough level 07/23 @1830: 16.8 ht 172 cm wt 104 kg A/P: As trough within therapeutic range, will continue same dose of Vancomycin 1500 mg IVPB q10hr for now. Will continue to follow and adjust or check level again if condition were to change. Otherwise will monitor
[2019-07-26 09:37] LABS: BASOPHILS # (AUTO) 0.1 K/uL (0.0-8.0); EOSINOPHILS # (AUTO) 0.2 K/uL (0.0-0.7); EOSINOPHILS % (AUTO) 3.3 % (0.0-7.0); HEMATOCRIT 40.8 % (36.7-47.1); HEMOGLOBIN 13.8 g/dL (12.5-16.3); LYMPHOCYTES # (AUTO) 1.8 K/uL (20.0-40.0); LYMPHOCYTES % (AUTO) 24.5 % (20.5-51.5); MEAN CORPUSCULAR HEMOGLOBIN 27.3 uug (23.8-33.4); MEAN CORPUSCULAR HGB CONC 34 g/dL (32.5-36.3); MEAN CORPUSCULAR VOLUME 80.8 fL (73.0-96.2); MONOCYTES # (AUTO) 0.3 K/uL (2.0-10.0); MONOCYTES % (AUTO) 3.9 % (0.0-11.0); NEUTROPHILS # (AUTO) 4.9 K/uL (1.8-8.9); NEUTROPHILS % (AUTO) 67.3 % (38.5-71.5); PLATELET COUNT (AUTO) 341 K/uL (152-348); RED BLOOD CELL COUNT(AUTO) 5.05 MIL/uL (4.06-5.63); WHITE BLOOD COUNT (AUTO) 7.2 K/uL (3.6-10.2)
[2019-07-26 11:06] VITALS: BP 116/47
[2019-07-26 15:35] VITALS: BP 119/72
[2019-07-26] MEDS: IV NS 1000 ML 1,000 ML IV PRN (18:13)
--- NOTE | 2019-07-26 18:35 | NUR ---
Patient calm and compliant through out shift with no signs of distress; patient with stable vital signs ; patient medication compliant ; patient showered per request; patient educated on disease process ; patient verbalized understanding.
[2019-07-27] MEDS: VANCOMYCIN IV 1,500 MG in IV DEXTROSE 5% 500 ML IV SCH (03:05)
[2019-07-27] MEDS: IV NS 1000 ML 1,000 ML IV PRN (05:19)
[2019-07-27] MEDS: NEOMY/BACITRAC/POLYMI OINT 28.35 GM TUBE TOP SCH (08:04)
[2019-07-27] MEDS: SILVER SULFADIAZINE 1% CREAM 50 GM TP SCH (08:05)
[2019-07-27 10:14] LABS: BASOPHILS # (AUTO) 0.1 K/uL (0.0-8.0); EOSINOPHILS # (AUTO) 0.2 K/uL (0.0-0.7); EOSINOPHILS % (AUTO) 2.5 % (0.0-7.0); HEMATOCRIT 39.7 % (36.7-47.1); HEMOGLOBIN 13.3 g/dL (12.5-16.3); LYMPHOCYTES # (AUTO) 1.8 K/uL (20.0-40.0); LYMPHOCYTES % (AUTO) 26.6 % (20.5-51.5); MEAN CORPUSCULAR HEMOGLOBIN 27.2 uug (23.8-33.4); MEAN CORPUSCULAR HGB CONC 34 g/dL (32.5-36.3); MEAN CORPUSCULAR VOLUME 81.1 fL (73.0-96.2); MONOCYTES # (AUTO) 0.7 K/uL (2.0-10.0); NEUTROPHILS # (AUTO) 4.1 K/uL (1.8-8.9); NEUTROPHILS % (AUTO) 59.9 % (38.5-71.5); PLATELET COUNT (AUTO) 325 K/uL (152-348); RED BLOOD CELL COUNT(AUTO) 4.89 MIL/uL (4.06-5.63); WHITE BLOOD COUNT (AUTO) 6.8 K/uL (3.6-10.2)
[2019-07-27 11:01] LABS: CREATININE 1.1 mg/dL (0.6-1.3); MAGNESIUM 1.9 mg/dL (1.8-2.4); PHOSPHOROUS 3.5 mg/dL (2.5-4.9)
[2019-07-27 11:46] VITALS: BP 144/71
--- NOTE | 2019-07-27 11:56 | NUR ---
dc orders received noted and carried out.dc midline per md orders.dc instruction and education given to the .pt verbalized understanding all the instructions ,pt left the facility via private car in stable condition
--- NOTE | 2019-07-27 12:03 | NUR ---
PHARMACY CLINICAL NOTES: (VANCOMYCIN DOSING) S: Continue Vancomycin for 54 YO male with dx of recurrent LLE cellulitis with purulent discharge. He was on clindamycin but WC + for MRSA sens. to Vanco and Bactrim and resistant to clindamycin. Informed MD and he wants to change to Vancomycin O: BUN/SCR 13/1.1 , WBC 6.8 , TEMP 98.3 Vanco trough level on 07/22 at 0230: 9.5 Vanco trough level 07/23 @1830: 16.8 ht 172 cm wt 104 kg A/P: As trough within therapeutic range, will continue same dose of Vancomycin 1500 mg IVPB q10hr for now. Will continue to follow and adjust or check level again if condition were to change. Otherwise will monitor
== END 2019-07-27 12:05 | disposition home or self-care (01) | DRG 720 ==
LOC: ER 06:05 → MEDSURG3 11:30
PROVIDERS: ADMIT Family Medicine; ATTEND Family Medicine
PROC: 05HB33Z Insertion of Infusion Device into Right Basilic Vein, Percutaneous Approach (ICD-10-PCS; principal; 2019-07-22)
DX: A41.02 Sepsis due to Methicillin resistant Staphylococcus aureus (principal); E87.2 Acidosis; E44.1 Mild protein-calorie malnutrition; E83.42 Hypomagnesemia; L97.828 Non-pressure chronic ulcer of other part of left lower leg with other specified severity; L03.116 Cellulitis of left lower limb; I87.2 Venous insufficiency (chronic) (peripheral); S81.012A Laceration without foreign body, left knee, initial encounter; S81.011A Laceration without foreign body, right knee, initial encounter; X58.XXXA Exposure to other specified factors, initial encounter; Y92.89 Other specified places as the place of occurrence of the external cause; E66.9 Obesity, unspecified; Z68.35 Body mass index [BMI] 35.0-35.9, adult; Z59.0 Homelessness; E87.6 Hypokalemia; F17.210 Nicotine dependence, cigarettes, uncomplicated; D63.8 Anemia in other chronic diseases classified elsewhere; V19.9XXA Pedal cyclist (driver) (passenger) injured in unspecified traffic accident, initial encounter; S30.810A Abrasion of lower back and pelvis, initial encounter; Y93.55 Activity, bike riding; Z86.14 Personal history of Methicillin resistant Staphylococcus aureus infection; E83.39 Other disorders of phosphorus metabolism; Z87.81 Personal history of (healed) traumatic fracture; F15.10 Other stimulant abuse, uncomplicated; F11.10 Opioid abuse, uncomplicated; B19.20 Unspecified viral hepatitis C without hepatic coma; R60.0 Localized edema; R26.2 Difficulty in walking, not elsewhere classified
CPT/HCPCS: 36415; 70030-TC; 71045; 73590; 80307; 83605; 83735; 84100; 85025; 87040; 87070; 87077; 87086; 93005; A4663; A9150; G0378; G0480; J1885; J1956; J2543; J3370; J3475; J3490; J7030; J7050; J7060

== ENCOUNTER 2019-09-19 22:33 | Emergency (ER) | payer MEDICAID ==
[~2019-09-19] VITALS: Ht 182.9 cm; Wt 104.3 kg
[2019-09-19] MEDS ORDERED: VANCOMYCIN IV 1,000 MG in IV DEXTROSE 5% 250 ML IV ONE (23:00)
--- NOTE | 2019-09-19 23:00 | NUR ---
PATIENT WAS MSE BY DR ZALDIVAR IN ROOM 04B. PATIENT A & O X4.
[2019-09-19] MEDS ORDERED: VANCOMYCIN IV 200 ML ONE (23:09)
[2019-09-19 23:25] LABS: BASOPHILS % (AUTO) 0.7 % (0.0-2.0); EOSINOPHILS # (AUTO) 0.2 K/uL (0.0-0.7); HEMATOCRIT 38.3 % (36.7-47.1); LYMPHOCYTES # (AUTO) 1.4 K/uL (20.0-40.0); LYMPHOCYTES % (AUTO) 23.5 % (20.5-51.5); MEAN CORPUSCULAR HEMOGLOBIN 27.5 uug (23.8-33.4); MEAN CORPUSCULAR HGB CONC 34 g/dL (32.5-36.3); MEAN CORPUSCULAR VOLUME 81.5 fL (73.0-96.2); MONOCYTES # (AUTO) 0.6 K/uL (2.0-10.0); MONOCYTES % (AUTO) 10.2 % (0.0-11.0); NEUTROPHILS # (AUTO) 3.8 K/uL (1.8-8.9); NEUTROPHILS % (AUTO) 62.6 % (38.5-71.5); PLATELET COUNT (AUTO) 267 K/uL (152-348); RED BLOOD CELL COUNT(AUTO) 4.71 MIL/uL (4.06-5.63); WHITE BLOOD COUNT (AUTO) 6.1 K/uL (3.6-10.2)
[2019-09-19 23:32] LABS: CREATININE 1.1 mg/dL (0.6-1.3)
[2019-09-19 23:40] LABS: BILIRUBIN,TOTAL 0.1 mg/dL (0.2-1.0); TOTAL PROTEIN, SERUM 7.5 g/dL (6.4-8.2)
--- NOTE | 2019-09-20 00:30 | NUR ---
IV ATB INFUSION SITE PATENT. NO ADVERSE REACTION. WILL CONTINUE TO MONITOR.
--- NOTE | 2019-09-20 01:22 | NUR ---
Patient discharged to home in stable condition. Written and verbal after care instructions given. Patient verbalizes understanding of instructions.
[2019-09-20 01:25] VITALS: BP 142/77
== END 2019-09-20 01:31 | disposition home or self-care (01) ==
LOC: ER 22:34
DX: L03.116 Cellulitis of left lower limb (principal); L03.113 Cellulitis of right upper limb; L03.011 Cellulitis of right finger; Z59.0 Homelessness; F17.210 Nicotine dependence, cigarettes, uncomplicated; Z86.19 Personal history of other infectious and parasitic diseases
CPT/HCPCS: 99284; 36415; 80053; 83605; 85025; 96365; 96366; J3370; A4663